=== PATIENT | male | born 1980 | race Caucasian/White ===

== ENCOUNTER 2017-04-03 06:49 | Day surgery (SDC) | payer BC ==
[~2017-04-03] VITALS: Ht 175.3 cm; Wt 118.8 kg
[2017-04-03] VITALS (12 sets, daily range): BP systolic 121–156; BP diastolic 81–106; PULSE 72–82; RESP 10–18; Ht 175.3 cm; Wt 118.8 kg
[2017-04-03] MEDS ORDERED: MELO-210 PO (07:49)
[2017-04-03] MEDS ORDERED: LIDOCAINE 2%/EPI 30 ML INJ ONE (11:40)
[2017-04-03] MEDS ORDERED: COCAINE 4% 4 ML TOP ONE (11:40)
--- NOTE | 2017-04-03 11:47 | HPN ---
Date/Time of Note Date/Time of Note DATE: 04/03/17 TIME: 11:47 Interval H&P Admission Note Pt. seen H&P reviewed: No system changes ANTONI DURAN M.D. Apr 03, 2017 11:47
[2017-04-03] MEDS ORDERED: PROPOFOL 20 ML ONE (12:02)
[2017-04-03] MEDS ORDERED: SUCCINYLCHOLINE CHLORIDE 100 MG/5 ML SYG IV ONE (12:02)
[2017-04-03] MEDS ORDERED: LIDOCAINE 2% (SDV) 5 ML INJ ONE (12:02)
[2017-04-03] MEDS ORDERED: MIDAZOLAM 1 MG/ML 2 ML INJ ONE (12:02)
[2017-04-03] MEDS ORDERED: FENTAnyl 50 MCG/ML VIAL ONE (12:03)
[2017-04-03] MEDS ORDERED: METOCLOPRAMIDE 10 MG INJ ONE (12:46)
[2017-04-03] MEDS ORDERED: DEXAMETHASONE 4 MG/ML 1 ML INJ ONE (12:46)
[2017-04-03] MEDS ORDERED: ONDANSETRON 4 MG INJ ONE (12:46)
[2017-04-03] MEDS ORDERED: HYDROmorphONE 2 MG/ML SYG ONE (12:48)
[2017-04-03] MEDS ORDERED: BACITRACIN/POLYMYXIN 28.35 GM OINT TOP ONE (12:57)
[2017-04-03] MEDS ORDERED: hydrALAzine 20 MG INJ IV PRN (13:00)
[2017-04-03] MEDS ORDERED: ONDANSETRON 4 MG INJ IV PRN (13:00)
[2017-04-03] MEDS ORDERED: HYDROmorphONE (0.2 MG/ML) 10ML SYG IV PRN ×3 (13:00)
[2017-04-03] MEDS ORDERED: OXYCODONE/ACETAMINOPHEN (5/325) TAB PO PRN ×2 (13:00)
[2017-04-03] MEDS ORDERED: PROCHLORPERAZINE 10 MG INJ IV PRN (13:00)
[2017-04-03] MEDS ORDERED: LABETALOL HCL 20MG INJ IV PRN (13:00)
[2017-04-03] MEDS ORDERED: FENTAnyl 50 MCG/ML VIAL IV PRN ×3 (13:00)
[2017-04-03] MEDS ORDERED: MEPERIDINE 25 MG INJ IV PRN (13:00)
[2017-04-03] MEDS ORDERED: DIPHENHYDRAMINE 50 MG INJ IV PRN (13:00)
[2017-04-03] MEDS ORDERED: LABETALOL HCL 20MG INJ ONE (13:11)
--- NOTE | 2017-04-03 13:29 | PDOCDIS ---
Discharge Instructions DIAGNOSIS Discharge Diagnosis 1. SEPTAL DEVIATION. 2. BILATERAL CLARENCE BULLOSA LESIONS. 3. CHRONIC NASAL OBSTRUCTION. CONDITION Patient Condition: Good HOME CARE INSTRUCTIONS: Diet Instructions: Regular ACTIVITY: Activity Restrictions: Slowly Increase Activity Rest between Activity Avoid heavy lifting Do not operate Machinery Do not operate Power Tool Avoid Heavy Housework Bathing Restrictions: Tub Bath FOLLOW UP/APPOINTMENTS Follow-up Plan MY OFFICE IN 10 TO 14 DAYS. SCHOOL/WORK RELEASE May return to School/Work on: Apr 06, 2017 May return to School/Work with: With Restrictions (NO LIFTING OVER TEN LBS. NO EXCESIVE BENDING OR KNEELING. ) ANTONI DURAN M.D. Apr 03, 2017 13:29
--- NOTE | 2017-04-03 13:35 | OPR ---
Date/Time of Note Date/Time of Note DATE: 04/03/17 TIME: 13:31 Operative Report Procedure Date: Apr 03, 2017 Preoperative Diagnosis 1. SEPTAL DEVIATION. 2. BILATERAL CLARENCE BULLOSA LESIONS. 3. CHRONIC NASAL OBSTRUCTION. Postoperative Diagnosis SAME. Operation/Procedure Performed 1. SEPTOPLASTY VIA SMR. 2. RMOVAL OF BILATERAL CLARENCE BULLOSA LESIONS. Surgeon see signature line Hat Sizer NONE. Anesthesia Type: general (WITH 20 CC 2% LIDOCAINE WITH EPI 1:200,000 SOLN.) Anesthesiologist: KEVIN OLEA MD Estimated Blood Loss: 0 - 10 ml's Transfusion none Specimen SEPTAL CARTILAGE AND BONE. Grafts/Implants none Tubes/Drains NONE. Complications none Pt Condition Post Procedure: stable Disposition: PACU Indications TO IMPROVE BREATHING. Procedure Description SEE DICTATED OP REPORT. ANTONI DURAN M.D. Apr 03, 2017 13:35
--- NOTE | 2017-04-03 15:33 | OPR ---
DATE OF OPERATION: 04/03/2017 SURGEON: Khadar Joseph MD PREOPERATIVE DIAGNOSES: 1. Nasal septal deviation. 2. Bilateral chalino bullosa lesions. 3. Chronic nasal obstruction. POSTOPERATIVE DIAGNOSES 1. Nasal septal deviation. 2. Bilateral chalino bullosa lesions. 3. Chronic nasal obstruction. SURGICAL PROCEDURE PERFORMED: 1. A septoplasty using a submucosal resection technique. 2. Removal of bilateral nasal hcalino bullosa lesions. ESTIMATED BLOOD LOSS: Less than 20 mL. COMPLICATIONS: No complications. SPECIMENS SENT TO LAB: Septal cartilage and bone. ANESTHETIC USED: General anesthesia with orotracheal tube intubation. The patient also had topical cocaine 4% using 4 mL. The patient had 20 mL of 2% lidocaine with epinephrine 1:200,000. FINDINGS DURING PROCEDURE: Left nasal septal deviation with bilateral middle turbinate chalino bullo sa lesions causing nasal obstruction primarily of the upper nasal cavity. No signs of malignancies, tumors, polyps present during the procedure. INDICATIONS: Mr. Clay Mcintyre is a 36-year-old male who has a history of chronic nasal obstruction. The patient had been treated initially with topical nasal steroids and was found on CT scan evaluat ion to have a large bilateral chalino bullosa lesions with a deviated nasal septum. The patient is c urrently scheduled for procedure which will include a septoplasty and bilateral removal of his chalino bullosa lesions. Risks, benefits, and alternatives have been explained thoroughly to Mr. Win youssef they include infection, bleeding, scar formation, failure of procedure, the risks of general an d local anesthetic agents that we use during the procedure and possible reactions. He had signed th e consent once his questions were answered. The patient left the operating room in good and satisfa ctory condition. DESCRIPTION OF PROCEDURE: . The patient was taken to the operating room, placed on the surgic al table in supine position, made comfortable by the anesthesiologist. The patient had EKG, saturat ion monitoring and blood pressure cuff applied. At this point, the patient was then given a mask in halation agent and placed asleep gently. The patient had a previously started IV in the preinductio n area which was infusing well. The patient was given IV sedation and placed under general anesthes ia. At this point, patient was successfully orotracheally intubated with orotracheal cuffed tube wi thout any complications. Eyes were taped for protection as the table was unlocked and pushed down t owards the floor of the bed. At this point, the table was relocked as the patient had a brief time- out with patient identification and procedure, and all were in agreement. The patient was then drap ed out in usual sterile fashion using a split sheet. At this point, inspection of the nasal cavity revealed a left nasal septal deviation near the floor of the nose. There was also some slight devia tion to the superior portion of the septum. The patient had bilaterally enlarged middle turbinates which were encroaching upon the septum narrowing the upper airway. At that point, there were inject ions given into the septum, floor of the nose and the middle turbinate areas using a 25-gauge 1-06/26 lesion delivering 2% lidocaine with epinephrine 1:200,000 solution. At this point, the patient had lateral injections along the dorsum of the nose through an intercartilage approach. Cottonoids soak ed with cocaine 4% using 4 mL was then applied to the anterior ethmoid and behind the middle turbina te areas. After maximal time was allowed for maximal effect of the medication, the cottonoids were then removed. A septoplasty procedure was begun by taking a #15 Bard-Zane sharp stainless steel b lade and making an incision to the left side of the anterior nasal septal mucosa. This incision was carried down through to the perichondrium of the septum. A mucoperichondrial flap was then elevate d with a [place] elevator with care not to tear the flap. The elevation was done in a posterior dire ction on the left side of the nose. At this point, the hemitransfixion incision was then completed with the use of a #15 Bard-Zane sharp stainless steel blade through to the right side of the nose with care not to damage the right mucoperichondrial mucosal wall. At this point, the Angeles elevato r was advanced and an elevated flap on the right side of the nose was accomplished. The deviated ca rtilage and bone were then removed from between the flaps in a posterior direction using a Ripstone forceps. This allowed the mucoperichondrial flaps to swing back towards the midline. At this poin t, the hemitransfixion incision was closed with a 4-0 Vicryl suture in simple interrupted fashion. Using plication sutures to keep the flaps together and in the midline. At this point, the middle tu rbinate chalino bullosa lesions were then infractured towards the medial wall of the maxillary sinus, to give greater patency of the nasal cavity. This gave opening to the upper portion of the nose, a t which the chalino bullosa were removed. At this point, there was a minimal amount of bleeding and the Galindo suction was used to suction blood from the nasal cavity. At this point, bacitracin oint ment was then used as a packing to pack the nose and a mustache dressing was applied beneath the nos e to catch any drainage. This ended the procedure. The oral cavity was suctioned of blood-tinged s ecretions. The patient was then extubated in the operating room and taken to recovery room where he is currently doing well and expects to be discharged home unless postoperative complications fabby downs Dictated By: KHADAR CABAN/NORBERTO Conf#: [id number] DID#: [id number]
== END 2017-04-03 15:25 | disposition home or self-care (01) ==
LOC: SDS 06:49
PROVIDERS: ATTEND Otolaryngology Otolaryngology/Facial Plastic Surgery
DX: J34.2 Deviated nasal septum (principal); J34.89 Other specified disorders of nose and nasal sinuses; E66.9 Obesity, unspecified
CPT/HCPCS: 30520; 31240; 88304; J0360; J1100; J1170; J2250; J2405; J2765; J3010; Z7512; Z7610

== ENCOUNTER 2017-06-11 11:46 | Day surgery (SDC) | payer BC ==
[~2017-06-11] VITALS: Ht 175.3 cm; Wt 123.1 kg
[~2017-06-11 11:46] MED LIST: MELO-210 PO
[2017-06-11] MEDS ORDERED: IBUPROFEN (12:17)
[2017-06-11 12:22] VITALS: Ht 175.3 cm; Wt 123.1 kg
[2017-06-11 12:44] VITALS: BP 118/56; PULSE 93; RESP 20
--- NOTE | 2017-06-11 14:23 | OPPN ---
Date/Time of Note Date/Time of Note DATE: 06/11/17 TIME: 14:22 Operative Report Preoperative Diagnosis Rectal bleeding rectal pain Postoperative Diagnosis Normal colonoscopy Operation/Procedure Performed Colonoscopy Surgeon see signature line office administrative assistant None Anesthesia: moderate sedation (Versed 4 mg fentanyl 100 mcg total. For moderate sedation 20 minutes) Estimated blood loss: none Transfusion Required none Specimen None Grafts/Implants none Complications none SHADE RAMIREZ MD Jun 11, 2017 14:23
[2017-06-11] MEDS ORDERED: MIDAZOLAM 1 MG/ML 2 ML INJ ONE ×2 (14:32)
[2017-06-11] MEDS ORDERED: FENTAnyl 50 MCG/ML VIAL ONE (14:32)
[2017-06-11 14:50] VITALS: BP 115/80; PULSE 88; RESP 18
--- NOTE | 2017-06-12 07:18 | GILP ---
DATE OF PROCEDURE: 06/11/2017 PREOPERATIVE DIAGNOSIS: Rectal bleeding and rectal pain. PROCEDURE DONE: Colonoscopy all the way to cecum. POSTOPERATIVE DIAGNOSIS: Normal colonoscopy. DESCRIPTION OF PROCEDURE: The patient was put in left lateral decubitus after obtaining informed co nsent. He was given 4 mg IV Versed and 100 mcg of fentanyl. Total period for moderate sedation 20 minutes. Advanced an Olympus video colonoscope all the way to cecum. Ileocecal valve, appendiceal opening identified. Cecum, ascending colon, transverse colon, descending colon, sigmoid colon, and rectum essentially normal. Retroflexion also done in the rectum unremarkable. In the anal canal ar ea, there was a small hemorrhoid, otherwise unremarkable. RECOMMENDATIONS: Anusol suppositories if he continues to have pain in the rectum or Proctofoam. Re commend repeat colonoscopy in 10 years. If the pain continues in the anal canal, lubricant or Nuperc ainal ointment can be applied. He will follow up with the primary MD and I will see him p.r.n. Dictated By: SHADE BETTS/NORBERTO Conf#: [id number] DID#: [id number] CC: CHIKIS FRY MD;*EndCC*
== END 2017-06-11 14:26 | disposition home or self-care (01) ==
LOC: GIL 11:46
PROVIDERS: ATTEND Internal Medicine
DX: K62.89 Other specified diseases of anus and rectum (principal); K62.5 Hemorrhage of anus and rectum
CPT/HCPCS: J2250; J3010